=== PATIENT | female | born 1995 | race American Indian/Alaskan Native ===

== ENCOUNTER 2019-08-13 05:05 | Emergency (ER) | payer SELFPAY ==
[2019-08-13] MEDS ORDERED: diphenhydrAMINE 50 MG/ML VIAL IV ONE (05:46)
[2019-08-13] MEDS ORDERED: SODIUM CHLORIDE 0.9% 1000 ML 1,000 ML IV ONE (05:46)
[2019-08-13] MEDS ORDERED: METOCLOPRAMIDE 10 MG/2 ML INJ IV ONE (05:46)
[2019-08-13 06:19] LABS: Basophils % (Auto) 0.8 % (0.0-1.8); Eosinophils # (Auto) 0.1 K/mm3 (0.0-0.4); Eosinophils % (Auto) 1.6 % (0.0-4.3); Hematocrit 35.4 % (30.3-42.9); Hemoglobin 11.7 gm/dl (10.1-14.3); Lymphocytes # (Auto) 1.8 K/mm3 (1.2-5.4); Lymphocytes % (Auto) 33.4 % (13.4-35.0); Mean Corpuscular HGB Conc 33 % (30-34); Mean Corpuscular Volume 79 fl (79-97); Monocytes # (Auto) 0.4 K/mm3 (0.0-0.8); Monocytes % (Auto) 6.5 % (0.0-7.3); Platelet Count 388 K/mm3 (140-440); Red Blood Count 4.48 M/mm3 (3.65-5.03); Red Cell Distribution Width 14.8 % (13.2-15.2)
--- NOTE | 2019-08-13 06:38 | Emergency Department Report ---
ED General Adult HPI - General Chief complaint: Headache Stated complaint: HEADACHE,RINGING EAR,MOUTH HURTS,BLURRED VISION Time Seen by Provider: 08/13/19 05:37 Source: patient, EMS Mode of arrival: Ambulatory Limitations: No Limitations - History of Present Illness Initial comments: Patient is a 24-year-old female presents emergency room with complaints of a frontal headache that began 2 days ago. She has associated ringing in the ears, blurred vision, photophobia. She states that she had a possible syncopal episode while in bed. She states that the pain became uncomfortable and she thinks she may have passed out. She denies any nausea, vomiting, neck stiffness, fever, numbness, unilateral weakness. She states that she took Tylenol without much relief. She has a past medical history of depression and anxiety. She states she is currently on her menstrual cycle. She denies any history of headaches. Severity scale (0 -10): 10 - Related Data Previous Rx's Medication Instructions Recorded Last Taken Type Butalb/Acetaminophen/Caffeine 1 cap PO Q6HR PRN 4 Days #10 cap 08/13/19 Unknown Rx [Fioricet 50-300-40 mg CAP] ED Review of Systems ROS: Stated complaint: HEADACHE,RINGING EAR,MOUTH HURTS,BLURRED VISION Other details as noted in HPI Comment: All other systems reviewed and negative ED Past Medical Hx - Past Medical History Previous Medical History?: Yes Hx Psychiatric Treatment: Yes (Anxiety depression) - Surgical History Past Surgical History?: Yes Hx Cholecystectomy: Yes - Social History Smoking Status: Never Smoker Substance Use Type: Alcohol - Medications Home Medications: Home Medications Medication Instructions Recorded Confirmed Last Taken Type Butalb/Acetaminophen/Caffeine 1 cap PO Q6HR PRN 4 Days #10 cap 08/13/19 Unknown Rx [Fioricet 50-300-40 mg CAP] ED Physical Exam - General Limitations: No Limitations General appearance: alert, in no apparent distress - Head Head exam: Present: atraumatic, normocephalic - Eye Eye exam: Present: normal appearance, PERRL, EOMI - ENT ENT exam: Present: mucous membranes moist, TM's normal bilaterally, normal external ear exam - Neck Neck exam: Present: full ROM. Absent: meningismus - Respiratory Respiratory exam: Present: normal lung sounds bilaterally. Absent: respiratory distress, wheezes, rales, rhonchi, stridor, chest wall tenderness, accessory mus [place] use, decreased breath sounds, prolonged expiratory - Cardiovascular Cardiovascular Exam: Present: regular rate, normal rhythm, normal heart sounds. Absent: systolic murmur, diastolic murmur, rubs, gallop - Neurological Exam Neurological exam: Present: alert, oriented X3, CN II-XII intact, normal gait, other (normal finger to nose, normal heel to talley, no facial asymmetry, no pronator drift, equal technical training specialist strength, 5/5 strength in the BUE/BLE, sensation intact throughout, no focal neuro deficit). Absent: motor sensory deficit - Psychiatric Psychiatric exam: Present: normal affect, normal mood - Skin Skin exam: Present: warm, dry, intact ED Course Vital Signs 08/13/19 08/13/19 05:14 07:51 Temperature 98.3 F 98.9 F Pulse Rate 79 66 Respiratory 18 18 Rate Blood Pressure 135/111 110/73 [Left] O2 Sat by Pulse 99 100 Oximetry ED Medical Decision Making - Lab Data Result diagrams: 08/13/19 05:59 08/13/19 05:59 - Medical Decision Making 7:10 AM. Signed out to Vidhi Gonsalves PA-C, pending UA, EKG, visual acuity and improvement of headache please see his note for disposition and counseling Critical care attestation.: If time is entered above; I have spent that time in minutes in the direct care of this critically ill patient, excluding procedure time. ED Disposition Clinical Impression: Headache Qualifiers: Headache type: unspecified Headache chronicity pattern: acute headache Intractability: not intractable Qualified Code(s): R51 - Headache Disposition: DC-01 TO HOME OR SELFCARE Is pt being admited?: No Does the pt Need Aspirin: No Condition: Stable Instructions: Acute Headache (ED) Additional Instructions: Pt was explained that her head imaging was WNL and that she will be referred to neurology. Pt was also prescribed Fiorcet for headaches; she was explained to not drink, drive or lift heavy objects while on this medication. Pt verbalized understanding and agreed with the plan of care. Pt will f/u with Neurology. Prescriptions: Butalb/Acetaminophen/Caffeine [Fioricet 50-300-40 mg CAP] 1 cap PO Q6HR PRN 4 Days #10 cap PRN Reason: Headache Referrals: SIMBA LAGUNA MD [Staff Physician] - 3-5 Days PRIMARY CARE, [Primary Care Provider] - 3-5 Days Forms: Work/School Release Form(ED)
[2019-08-13 06:39] LABS: Alanine Aminotransferase 21 units/L (7-56); Albumin 3.8 g/dL (3.9-5); BUN/Creatinine Ratio 10; Blood Urea Nitrogen 6 mg/dL (7-17); Hemolysis Index 0
--- NOTE | 2019-08-13 06:43 | Cat Scan Report ---
CT HEAD/BRAIN WO CON INDICATION / CLINICAL INFORMATION: Headache, blurred vision and possible syncope. TECHNIQUE: All CT scans at this location are performed using CT dose reduction for ALARA by means of automated e xposure control. COMPARISON: None available. FINDINGS: The ventricular system is normal in size and configuration. No focal lesion or mass effect is seen. T here is no evidence of intracranial hemorrhage or major vessel occlusion. The calvarium is intact. Th e visualized paranasal sinuses and mastoid air cells are clear. IMPRESSION: No acute abnormality. Signer Name: Jerzy Abad MD Signed: 08/13/2019 6:38 AM Workstation Name: [id number]
--- NOTE | 2019-08-13 07:30 | Emergency Department Report ---
ED Headache HPI - General Chief Complaint: Headache Stated Complaint: HEADACHE,RINGING EAR,MOUTH HURTS,BLURRED VISION Time Seen by Provider: 08/13/19 05:37 - History of Present Illness Home Medications: Ambulatory Orders Butalb/Acetaminophen/Caffeine [Fioricet 50-300-40 mg CAP] 1 cap PO Q6HR PRN 4 Days #10 cap 08/13/19 ED Review of Systems ROS: Stated complaint: HEADACHE,RINGING EAR,MOUTH HURTS,BLURRED VISION Other details as noted in HPI ED Past Medical Hx - Past Medical History Previous Medical History?: Yes Hx Psychiatric Treatment: Yes (Anxiety depression) - Surgical History Past Surgical History?: Yes Hx Cholecystectomy: Yes - Social History Smoking Status: Never Smoker Substance Use Type: Alcohol - Medications Home Medications: Home Medications Medication Instructions Recorded Confirmed Last Taken Type Butalb/Acetaminophen/Caffeine 1 cap PO Q6HR PRN 4 Days #10 cap 08/13/19 Unknown Rx [Fioricet 50-300-40 mg CAP] ED Physical Exam - General Limitations: No Limitations General appearance: alert, in no apparent distress ED Course Vital Signs 08/13/19 08/13/19 05:14 07:51 Temperature 98.3 F 98.9 F Pulse Rate 79 66 Respiratory 18 18 Rate Blood Pressure 135/111 110/73 [Left] O2 Sat by Pulse 99 100 Oximetry ED Medical Decision Making - Lab Data Result diagrams: 08/13/19 05:59 08/13/19 05:59 - Radiology Data [facility] [address] [place] [address] Cat Scan Report Signed Patient: PAOLA ROTHMAN MR#: [id number] : 1995 Acct:[id number] Age/Sex: 24 / F ADM Date: 08/13/19 Loc: ED Attending Dr: Ordering Physician: RL NASSAR Date of Service: 08/13/19 Procedure(s): CT head/brain wo con Accession Number(s): [id number] cc: RL NASSAR CT HEAD/BRAIN WO CON INDICATION / CLINICAL INFORMATION: Headache, blurred vision and possible syncope. TECHNIQUE: All CT scans at this location are performed using CT dose reduction for ALARA by means of automated exposure control. COMPARISON: None available. FINDINGS: The ventricular system is normal in size and configuration. No focal lesion or mass effect is seen. There is no evidence of intracranial hemorrhage or major vessel occlusion. The calvarium is intact. The visualized paranasal sinuses and mastoid air cells are clear. IMPRESSION: No acute abnormality. Signer Name: Jerzy Abad MD Signed: 08/13/2019 6:38 AM Workstation Name: [id number] Transcribed By: RT Dictated By: Jerzy Abad MD Electronically Authenticated By: Jerzy Abad MD Signed Date/Time: 08/13/19637 DD/ 5 TD/TT: - Medical Decision Making Pt states that her pain has decreased and her vision has improved. Pt was explained that her head imaging was WNL and that she will be referred to [facility]. Pt was also prescribed Fiorcet for headaches; she was explained to not drink, drive or lift heavy objects while on this medication. She was explained that upon discharge she needs to call a family member before departing the ER; she agreed to do so and wait in the lobby for her ride. She was told to see ER as needed. Pt verbalized understanding and agreed with the plan of care. Pt will f/u with Neurology. Critical care attestation.: If time is entered above; I have spent that time in minutes in the direct care of this critically ill patient, excluding procedure time. ED Disposition Clinical Impression: Headache Disposition: DC-01 TO HOME OR SELFCARE Is pt being admited?: No Does the pt Need Aspirin: No Condition: Stable Instructions: Acute Headache (ED) Additional Instructions: Pt was explained that her head imaging was WNL and that she will be referred to neurology. Pt was also prescribed Fiorcet for headaches; she was explained to not drink, drive or lift heavy objects while on this medication. Pt verbalized understanding and agreed with the plan of care. Pt will f/u with Neurology. Prescriptions: Butalb/Acetaminophen/Caffeine [Fioricet 50-300-40 mg CAP] 1 cap PO Q6HR PRN 4 Days #10 cap PRN Reason: Headache Referrals: PRIMARY CARE, [Primary Care Provider] - 3-5 Days SIMBA LAGUNA MD [Staff Physician] - 3-5 Days Forms: Work/School Release Form(ED)
[2019-08-13 07:52] VITALS: BP 110/73
[2019-08-13 08:21] LABS: Bacteria,Urine 4+ /HPF (Negative); Bilirubin,Urine NEG (Negative); Blood,Urine LG (Negative); Color,Urine Yellow (Yellow); HCG Qualitative,Urine Negative (Negative); Mucus,Urine FEW /HPF; Protein,Urine <15 mg/dL mg/dL (Negative); RBC,Urine < 1.0 /HPF (0.0-6.0); Urobilinogen,Urine < 2.0 mg/dL (<2.0); WBC,Urine < 1.0 /HPF (0.0-6.0)
== END 2019-08-13 08:27 | disposition home or self-care (01) ==
LOC: ED 05:05
DX: R51 Headache (principal); F41.9 Anxiety disorder, unspecified; F32.9 Major depressive disorder, single episode, unspecified
CPT/HCPCS: 36415; 70450; 80053; 81001; 81025; 82550; 83735; 84100; 85025; 93005; 93010; 96374; 96375; 99284; J1200; J2765; J7030

== ENCOUNTER 2020-03-26 11:57 | Emergency (ER) | payer SELFPAY ==
[2020-03-26] MEDS ORDERED: SODIUM CHLORIDE 0.9% 1000 ML 1,000 ML IV ONE (12:57)
--- NOTE | 2020-03-26 13:09 | Emergency Department Report ---
HPI - General Time Seen by Provider: 03/26/20 12:56 - HPI HPI: This is a 25-year-old -[place] female presents to the emergency department via EMS from home after the patient attempted to harm herself, possibly commit suicide, by an overdose of her Prozac 20 mg. The patient took 48 of these pills about 1.5 to 2 hours ago. At this time the patient complains of some chest discomfort, upper abdominal pain, nausea, vomiting and a headache. She has a history of major depressive disorder, anxiety, ADHD, asthma. Patient says that she switched from a different antidepressant in November, but did not start this medication immediately. She says that she has been getting grief from her grandmother that has caused her to want to end her life. She also says that "lots of people are dying." She complains that her "rapist father just got out of senior living." ED Past Medical Hx - Past Medical History Hx Psychiatric Treatment: Yes (Anxiety depression) - Surgical History Hx Cholecystectomy: Yes - Social History Smoking Status: Never Smoker Substance Use Type: Alcohol - Medications Home Medications: Home Medications Medication Instructions Recorded Confirmed Last Taken Type Butalb/Acetaminophen/Caffeine 1 cap PO Q6HR PRN 4 Days #10 cap 08/13/19 Unknown Rx [Fioricet 50-300-40 mg CAP] ED Review of Systems ROS: Stated complaint: SUICIDAL Other details as noted in HPI Comment: All other systems reviewed and negative Constitutional: denies: chills, fever Eyes: denies: eye pain, vision change ENT: denies: ear pain, throat pain Respiratory: denies: cough, shortness of breath Cardiovascular: chest pain. denies: palpitations Gastrointestinal: abdominal pain, nausea, vomiting Genitourinary: denies: dysuria, discharge Musculoskeletal: denies: back pain, arthralgia Skin: denies: rash, lesions Neurological: headache. denies: weakness, numbness Psychiatric: depression, suicidal thoughts. denies: auditory hallucinations, visual hallucinations, homicidal thoughts Physical Exam - Physical Exam Physical Exam: GENERAL: The patient is well-developed well-nourished. HENT: Normocephalic. Atraumatic. Patient has moist mucous membranes. EYES: Extraocular motions are intact. NECK: Supple. Trachea is midline. CHEST/LUNGS: Clear to auscultation. There is no respiratory distress noted. HEART/CARDIOVASCULAR: Regular. There is no tachycardia. There is no murmur. ABDOMEN: Abdomen is soft, nontender. Patient has normal bowel sounds. SKIN: Skin is warm and dry. NEURO: The patient is awake, alert, and oriented. The patient is cooperative. The patient has no focal neurologic deficits. Normal speech. MUSCULOSKELETAL: There is no tenderness or deformity. ED Course - Consultations Consultation #1: 03/26/20 13:13 I spoke with poison control regarding this patient's ingestion. She is out of the window for activated charcoal. They recommend IV fluid resuscitation, antiemetics as necessary, using benzodiazepine for agitation and avoiding any Haldol or Geodon as it could lower a seizure threshold. We are to look out for serotonin syndrome, but they feel this is lower suspicion/concern as the patient ingested only a single agent despite the amount. They recommend an EKG and checking aspirin and Tylenol levels. Mostly the treatment is supportive care. ED Medical Decision Making - Lab Data Result diagrams: 03/26/20 13:18 03/26/20 13:18 - EKG Data -: EKG Interpreted by Ne EKG shows normal: sinus rhythm, axis, intervals, QRS complexes (Q waves to the septal leads), ST-T waves Rate: normal - EKG Data When compared to previous EKG there are: previous EKG unavailable Interpretation: other (Sinus rhythm at 78 bpm, normal axis, normal intervals, Q waves to the septal leads) - Medical Decision Making This patient presents to the emergency department after ingesting 48 Prozac pills with the intent of harming herself or ending her life secondary to depression and stress. Patient arrives with some complaints of nausea without vomiting, chest discomfort, abdominal pain but overall does not appear in any respiratory or acute distress. An EKG was done that does not show any morphology consistent with ST elevation OR or any dysrhythmia and she has normal interval levels. Patient's labs are unremarkable including CBC, metabolic panel, blood alcohol level, urine drug screen and urinalysis. Please control was contacted and just recommended a 6-hour observation and supportive care. At this point it has been greater than 6 hours since ingestion and the patient has not had any signs of serotonin syndrome or any other toxidromes. Vital signs have been reassuring throughout her ED course thus far. She appears medically cleared for psychiatric placement. Critical Care Time: No Critical care attestation.: If time is entered above; I have spent that time in minutes in the direct care of this critically ill patient, excluding procedure time. ED Disposition Clinical Impression: Suicide attempt by drug ingestion Qualifiers: Encounter type: initial encounter Qualified Code(s): T50.902A - Poisoning by unspecified drugs, medicaments and biological substances, intentional self-harm, initial encounter Overdose of antidepressant Qualifiers: Encounter type: initial encounter Injury intent: intentional self-harm Qualified Code(s): T43.202A - Poisoning by unspecified antidepressants, intentional self-harm, initial encounter Disposition: DC/TX-65 PSY HOSP/PSY UNIT Is pt being admited?: No Condition: Stable Time of Disposition: 18:23
[2020-03-26] MEDS ORDERED: ONDANSETRON 4 MG/2 ML INJ IV ONE (13:12)
[2020-03-26 14:09] LABS: Basophils # (Auto) 0.1 K/mm3 (0.0-0.1); Basophils % (Auto) 1.8 % (0.0-1.8); Eosinophils % (Auto) 0.8 % (0.0-4.3); Hematocrit 37.2 % (30.3-42.9); Hemoglobin 12.6 gm/dl (10.1-14.3); Lymphocytes # (Auto) 1.4 K/mm3 (1.2-5.4); Lymphocytes % (Auto) 24.1 % (13.4-35.0); Mean Corpuscular HGB Conc 34 % (30-34); Mean Corpuscular Volume 79 fl (79-97); Monocytes # (Auto) 0.5 K/mm3 (0.0-0.8); Monocytes % (Auto) 7.8 % (0.0-7.3); Platelet Count 367 K/mm3 (140-440); Red Blood Count 4.69 M/mm3 (3.65-5.03); Red Cell Distribution Width 15.1 % (13.2-15.2)
[2020-03-26 14:25] LABS: Alanine Aminotransferase 23 units/L (7-56); Albumin 3.7 g/dL (3.9-5); Blood Urea Nitrogen 5 mg/dL (7-17); Calcium 9.2 mg/dL (8.4-10.2); Hemolysis Index 4
[2020-03-26 14:51] LABS: BUN/Creatinine Ratio 8
[2020-03-26] MEDS ORDERED: POTASSIUM CHLORIDE ER 20 MEQ TAB PO ONE (15:21)
[2020-03-26 17:08] LABS: Bilirubin,Urine NEG (Negative); Blood,Urine NEG (Negative); Color,Urine Amber (Yellow); Mucus,Urine 3+ /HPF
[2020-03-26 17:10] LABS: Amphetamine Screen,Urine PRESUMPTIVE NEGATIVE; Benzodiazepines Screen,Urine PRESUMPTIVE NEGATIVE; Cannabinoid Screen,Urine PRESUMPTIVE NEGATIVE; Cocaine Screen,Urine PRESUMPTIVE NEGATIVE; Methadone Screen,Urine PRESUMPTIVE NEGATIVE; Opiate Screen,Urine PRESUMPTIVE NEGATIVE
--- NOTE | 2020-03-27 11:56 | Consultation ---
History of Present Illness - Reason for Consult Consult date: 03/27/20 Reason for consult: SI, OD - History of Present Psychiatric Illness The patient medical record was reviewed and the patient's progress was discussed with the nursing staff. The nurse note states the patient has been "hollering like a cat." Jannet Gage is a 25y/o female who was brought to the ER after taking possible 20 prozacs. During my interview with the patient today, she is lying in bed aw jayashree. She is at the foot of the bed. The patient verbalizes being "suicidal." She says, "I'm sick of it. I had a mental break down about a month ago and I never recovered from it." She then says, "I'm over it." She states "I'm depressed and I'm pissed that the overdose didn't work." She says, "I did my research and one person taking 8 grams. I took 9.6." Jannet says she was diagnosed with "dep ression and anxiety." She says she was taking "prozac." But states, "I took all of them." She says she attempt suicide "two other times." The patient says she has been admitted for psych related issues "once." She denies hallucinations of any kind. PAST PSYCHIATRIC HISTORY: Diagnoses: Depression, anxiety Suicide attempts or Self-harm behavior: Twice Prior psychiatric hospitalizations: Once Substance Abuse history: Denies Previous psychiatric medications tried: Prozac, celexa Outpatient treatment: Yes PAST MEDICAL HISTORY: None reported Family Psychiatric History: None reported or documented SOCIAL HISTORY Marital Status: Single Living Arrangements: With grandmother Employment Status: Unemployed Access to guns/weapons: Denies Education: High school History of Abuse: Denies Legal History: Denies MSE Appearance: Wearing appropriate clothing. Behavior: Calm and cooperative Mood: "depressed and pissed" Affect: Congruent with stated mood Thought Process: Goal directed Speech: normal tone and pace Thought Content Suicidal: Yes Homicidal: Denies Hallucinations: Denies Delusions: none elicited Consciousness: alert. Cognition/Memory: normal. Insight/Judgment: Limited. Diagnoses: Major Depressive Disorder, Severe w/o Psychotic Features Generalized Anxiety Disorder Treatment Plan Start Abilifty 5mg po daily Start Trazodone 50mg po qhs Start Hydroxyzine 25mg po BID Sitter: Defer to primary Medical Per primary Disposition: The patient meets the requirement for acute inpatient psychiatric treatment. Will follow. Thank you for this consult. Medications and Allergies Allergies Allergy/AdvReac Type Severity Reaction Status Date / Time No Known Allergies Allergy Unverified 03/26/20 13:06 Home Medications Medication Instructions Recorded Confirmed Last Taken Type Butalb/Acetaminophen/Caffeine 1 cap PO Q6HR PRN 4 Days #10 cap 08/13/19 Unknown Rx [Fioricet 50-300-40 mg CAP] Mental Status Exam - Vital signs Last Vital Signs Temp 99 F 03/27/20 10:25 Pulse 78 03/27/20 10:25 Resp 18 03/27/20 10:25 BP 139/85 03/27/20 10:25 Pulse Ox 99 03/27/20 08:49 Results Result Diagrams: 03/26/20 13:18 03/26/20 13:18 Abnormal lab results 03/26/20 03/26/20 03/26/20 Range/Units 13:18 13:18 13:18 MCH 27 L (28-32) pg Mcduffie % (Auto) 7.8 H (0.0-7.3) % Potassium (3.6-5.0) mmol/L Carbon Dioxide (22-30) mmol/L BUN (7-17) mg/dL Albumin (3.9-5) g/dL Urine WBC (Auto) (0.0-6.0) /HPF Salicylates < 0.3 L (2.8-20.0) mg/dL Acetaminophen 5.0 L (10.0-30.0) ug/mL 03/26/20 03/26/20 Range/Units 13:18 Unknown MCH (28-32) pg Mcduffie % (Auto) (0.0-7.3) % Potassium 3.4 L (3.6-5.0) mmol/L Carbon Dioxide 21 L (22-30) mmol/L BUN 5 L (7-17) mg/dL Albumin 3.7 L (3.9-5) g/dL Urine WBC (Auto) 7.0 H (0.0-6.0) /HPF Salicylates (2.8-20.0) mg/dL Acetaminophen (10.0-30.0) ug/mL All other labs normal.
[2020-03-27] MEDS: hydrOXYzine PAMOATE 25 MG CAP PO SCH ×2 (16:41→22:08)
[2020-03-27] MEDS: traZODone 50 MG TAB PO SCH (22:08)
[2020-03-28] MEDS: ARIPiprazole 5 MG TAB PO SCH ×2 (02:43→10:17)
[2020-03-28] MEDS ORDERED: ACETAMINOPHEN 325 MG TAB ONE (08:26)
[2020-03-28] MEDS ORDERED: ACETAMINOPHEN 325 MG TAB PO ONE ×2 (08:27→23:18)
[2020-03-28] MEDS: hydrOXYzine PAMOATE 25 MG CAP PO SCH ×2 (10:17→23:28)
[2020-03-28] MEDS ORDERED: IBUPROFEN 800 MG TAB PO ONE (12:53)
[2020-03-28] MEDS ORDERED: IBUPROFEN 800 MG TAB ONE (12:55)
--- NOTE | 2020-03-28 13:56 | Progress Note ---
Subjective - Reason for Consult Consult date: 03/28/20 Reason for consult: SI - Chief Complaint Chief complaint: During my interview with the patient today, she is lying down asleep. She easily arouses. She is oriented x 3. The patient states she is "still really depressed." She verbalizes suicidal thoughts but denies a plan. She states, "I just don't care no more. I give up." The patient denies hallucinations of any kid. REVIEW OF SYSTEMS Constitutional: Negative for weight loss ENT: Negative for stridor Respiratory: Negative for cough or hemoptysis All other systems reviewed and are negative MSE Appearance: Wearing appropriate clothing. Behavior: Calm and cooperative Mood: "depressed" Affect: Congruent with stated mood Thought Process: Goal directed Speech: normal tone and pace Thought Content Suicidal: Yes Homicidal: Denies Hallucinations: Denies Delusions: none elicited Consciousness: alert. Cognition/Memory: normal. Insight/Judgment: Limited. Diagnoses: Major Depressive Disorder, Severe w/o Psychotic Features Generalized Anxiety Disorder Treatment Plan Start Zoloft 25mg po daily Sitter: Defer to primary Medical Per primary Disposition: The patient meets the requirement for acute inpatient psychiatric treatment. Will follow. Thank you for this consult. Mental Status Exam - Vital signs Last Vital Signs Temp 98.8 F 03/28/20 08:49 Pulse 80 03/28/20 08:49 Resp 20 03/28/20 08:49 BP 116/66 03/28/20 08:49 Pulse Ox 99 03/28/20 08:49
[2020-03-28] MEDS ORDERED: SERTRALINE 25 MG TAB PO SCH (14:00)
[2020-03-28] MEDS: traZODone 50 MG TAB PO SCH (23:28)
[2020-03-29 06:30] VITALS: BP 134/78
[2020-03-29] MEDS ORDERED: IBUPROFEN 800 MG TAB PO ONE (08:02)
== END 2020-03-29 09:10 ==
LOC: ED 11:57
DX: T50.902A Poisoning by unspecified drugs, medicaments and biological substances, intentional self-harm, initial encounter (principal); T43.202A Poisoning by unspecified antidepressants, intentional self-harm, initial encounter; X58.XXXA Exposure to other specified factors, initial encounter; Y93.89 Activity, other specified; Y92.89 Other specified places as the place of occurrence of the external cause; Y99.8 Other external cause status
CPT/HCPCS: 36415; 80053; 80307; 81001; 84484; 84703; 85025; 93005; 96361; 96374; 99285; J2405; J7030; 80320; G0480; Q0177